=== PATIENT | female | born 1980 | race African-American/Black ===

== ENCOUNTER 2017-05-20 09:00 | Emergency (ER) | payer MEDICAID ==
[~2017-05-20] VITALS: Ht 162.6 cm; Wt 105.3 kg
[~2017-05-20 09:00] MED LIST: HYDR12.53 PO; LABE100T3 PO
[2017-05-20] MEDS ORDERED: CARV-39 PO (09:25)
[2017-05-20] MEDS ORDERED: DIAZEPAM 5 MG TABLET ONE (09:54)
[2017-05-20] MEDS ORDERED: KETOROLAC 30 MG/1 ML ONE (09:54)
[2017-05-20] MEDS ORDERED: HYDROcodone/APAP 5/325 TABLET ONE (09:54)
[2017-05-20] MEDS ORDERED: DIAZEPAM 5 MG TABLET PO ONE (10:00)
[2017-05-20] MEDS: HYDROcodone/APAP 5/325 TABLET PO ONE ×2 (10:00→10:47)
[2017-05-20] MEDS ORDERED: KETOROLAC 30 MG/1 ML IM ONE (10:00)
[2017-05-20 10:14] VITALS: BP 196/113
== END 2017-05-20 11:01 | disposition home or self-care (01) ==
LOC: ED 10:45
DX: S16.1XXA Strain of muscle, fascia and tendon at neck level, initial encounter (principal); I10 Essential (primary) hypertension; X58.XXXA Exposure to other specified factors, initial encounter; Y93.89 Activity, other specified; Y92.89 Other specified places as the place of occurrence of the external cause; Y99.8 Other external cause status
CPT/HCPCS: 72050; 96372; 99284; J1885

== ENCOUNTER 2017-06-18 11:52 | Emergency (ER) | payer MEDICAID ==
[~2017-06-18] VITALS: Ht 170.2 cm; Wt 108.0 kg
[~2017-06-18 11:52] MED LIST changes: +CARV-39 PO
[2017-06-18 12:09] VITALS: BP 185/119
== END 2017-06-18 13:13 | disposition home or self-care (01) ==
LOC: ED 12:40
DX: K02.9 Dental caries, unspecified (principal); I10 Essential (primary) hypertension; F17.210 Nicotine dependence, cigarettes, uncomplicated; Z88.0 Allergy status to penicillin; Z90.49 Acquired absence of other specified parts of digestive tract
CPT/HCPCS: 99283

== ENCOUNTER 2017-07-02 15:44 | Inpatient (IN) | payer MEDICAID ==
[~2017-07-02] VITALS: Ht 162.6 cm; Wt 107.5 kg
[2017-07-02] MEDS ORDERED: SODIUM CHLORIDE FLUSH 10ML SYR IVF ONE (16:00)
[2017-07-02 16:28] LABS: HEMATOCRIT 36.3 % (34.6-47.8); HEMOGLOBIN 11.6 g/dL (11.7-16.4); WHITE BLOOD COUNT 10.8 x10^3/uL (3.4-10)
[2017-07-02] MEDS ORDERED: KETOROLAC 30 MG/1 ML IVPush ONE (16:30)
[2017-07-02 16:40] LABS: BLOOD UREA NITROGEN 15 mg/dL (7-18)
[2017-07-02] MEDS ORDERED: KETOROLAC 30 MG/1 ML ONE (16:50)
[2017-07-02 16:51] LABS: IS PT STATUS REG ER OR PRE ER? YES
[2017-07-02] MEDS ORDERED: LABETALOL 5MG/ML, 20ML IVPush STA (16:54)
[2017-07-02] MEDS ORDERED: ASPIRIN 81 MG TABLET CHEW PO ONE (17:00)
[2017-07-02] MEDS ORDERED: ASPIRIN 81 MG TABLET CHEW ONE (17:10)
[2017-07-02] MEDS ORDERED: SODIUM CHLORIDE 0.9% 1,000 ML IV ONE (17:19)
[2017-07-02] MEDS ORDERED: ONDANSETRON 2MG/ML, 2ML IVPush PRN ×2 (17:30→18:00)
[2017-07-02] MEDS ORDERED: MORPHINE SULFATE 4 MG/ML, 1ML IVPush PRN (17:30)
[2017-07-02] MEDS ORDERED: NITROGLYCERIN 0.4 MG/SPRAY SL PRN (18:00)
[2017-07-02] MEDS ORDERED: ACETAMINOPHEN 325 MG TABLET PO PRN (18:00)
[2017-07-02] MEDS ORDERED: ENOXAPARIN 40 MG/0.4 ML SQ SCH (18:00)
[2017-07-02] MEDS ORDERED: ONDANSETRON ODT 4 MG PO PRN (18:00)
[2017-07-02] MEDS ORDERED: LORazepam 1MG TABLET PO PRN (18:00)
[2017-07-02] MEDS ORDERED: hydrALAzine 20 MG/ML, 1ML IVPush PRN (18:00)
[2017-07-02] MEDS ORDERED: NITROGLYCERIN 0.4 MG BOTTLE (25 TABS) SL PRN (18:00)
[2017-07-02] MEDS ORDERED: morphine SULFATE 10 MG/ML, 1ML IVPush PRN (18:00)
[2017-07-02] MEDS ORDERED: NICOTINE 21 MG/24 HR PATCH.TD24 TD ONE (18:30)
[2017-07-02] MEDS ORDERED: LABETALOL 5MG/ML, 20ML ONE (19:17)
[2017-07-02] MEDS ORDERED: LORazepam 1MG TABLET ONE (19:43)
[2017-07-02] MEDS ORDERED: CARVEDILOL 25 MG TABLET PO SCH (21:00)
[2017-07-02 21:51] VITALS: BP 180/108
[2017-07-02 23:34] LABS: IS PT STATUS REG ER OR PRE ER? NO
[2017-07-03] MEDS ORDERED: ENALAPRILAT 1.25 MG/ML, 2ML IV PRN (01:00)
[2017-07-03 03:15] VITALS: BP 143/84
[2017-07-03] MEDS ORDERED: ASPIRIN 325 MG TABLET EC PO SCH (06:00)
[2017-07-03 06:07] LABS: ASPARTATE AMINO TRANSFERASE 10 U/L (15-37); BLOOD UREA NITROGEN 13 mg/dL (7-18)
[2017-07-03 06:13] LABS: IS PT STATUS REG ER OR PRE ER? NO
[2017-07-03 06:23] LABS: HEMATOCRIT 37.2 % (34.6-47.8); HEMOGLOBIN 11.8 g/dL (11.7-16.4); WHITE BLOOD COUNT 8.8 x10^3/uL (3.4-10)
[2017-07-03 07:56] VITALS: BP 168/103
[2017-07-03] MEDS ORDERED: REGADENOSON 0.4 MG/5 ML SYRINGE ONE (08:06)
[2017-07-03] MEDS ORDERED: LISI-167 PO (08:10)
[2017-07-03] MEDS ORDERED: CARVEDILOL 25 MG TABLET PO SCH (09:00)
[2017-07-03] MEDS ORDERED: LISINOPRIL 10 MG TABLET PO SCH (09:00)
[2017-07-03 09:38] VITALS: BP_SYST 171; BP_SYST 174; BP_DIAS 112; BP_DIAS 113
[2017-07-03] MEDS ORDERED: AMLO10TA2 PO (10:50)
[2017-07-03] MEDS ORDERED: TRAM50TA2 PO (10:50)
[2017-07-03 14:13] LABS: DAU SCREEN DISCLAIMER
[2017-07-03 14:14] VITALS: BP 136/84
== END 2017-07-03 16:42 | disposition home or self-care (01) | DRG 880 ==
LOC: ED 16:56 → EDIP 17:19 → 5SO 19:26 → DCLOUNGE 07-03 16:22
PROVIDERS: ADMIT Family Medicine; ATTEND Family Medicine
DX: F41.9 Anxiety disorder, unspecified (principal); I11.0 Hypertensive heart disease with heart failure; I50.32 Chronic diastolic (congestive) heart failure; D50.9 Iron deficiency anemia, unspecified; D53.9 Nutritional anemia, unspecified; D72.829 Elevated white blood cell count, unspecified; F12.90 Cannabis use, unspecified, uncomplicated; F17.210 Nicotine dependence, cigarettes, uncomplicated; F32.9 Major depressive disorder, single episode, unspecified; R51 Headache; Z82.49 Family history of ischemic heart disease and other diseases of the circulatory system; Z83.3 Family history of diabetes mellitus; Z82.3 Family history of stroke; Z88.0 Allergy status to penicillin
CPT/HCPCS: 36415; 71010; 78452; 80048; 80053; 80061; 80307; 82040; 83036; 83880; 84443; 84484; 85025; 93005; 93017; 93306; 96374; 96375; J1885; J2785; A9502; C9898; G0479; J0360; J7030

== ENCOUNTER 2017-12-17 07:01 | Emergency (ER) | payer MEDICAID ==
[~2017-12-17] VITALS: Ht 160 cm; Wt 104.0 kg
[~2017-12-17 07:01] MED LIST changes: +AMLO10TA2 PO; +LISI-167 PO; +TRAM50TA2 PO
[2017-12-17] MEDS ORDERED: LISI5TAB7 PO (07:37)
[2017-12-17] MEDS ORDERED: FENTANYL PF 100 MCG/2ML IVPush PRN (08:00)
[2017-12-17] MEDS ORDERED: SODIUM CHLORIDE FLUSH 10ML SYR IVF ONE (08:00)
[2017-12-17] MEDS ORDERED: ONDANSETRON ODT 4 MG PO ONE (08:00)
[2017-12-17] MEDS ORDERED: FENTANYL PF 100 MCG/2ML ONE (08:05)
[2017-12-17] MEDS ORDERED: ONDANSETRON ODT 4 MG ONE (08:05)
[2017-12-17 08:10] LABS: MICROSCOPIC INDICATED
[2017-12-17 08:34] LABS: BASOPHILS # (AUTO) 0.01 x10^3/uL (0-0.1); BASOPHILS % (AUTO) 0 % (0-1); EOSINOPHILS # (AUTO) 0.06 x10^3/uL (0-0.4); EOSINOPHILS % (AUTO) 1 % (1-7); LYMPHOCYTES # (AUTO) 1.39 x10^3/uL (1-3.4); LYMPHOCYTES % (AUTO) 17 % (22-44); MD NO; MEAN CORPUSCULAR HEMOGLOBIN 23.8 pg (27.0-34.8); MEAN CORPUSCULAR VOLUME 74.4 fL (80-100); MEAN PLATELET VOLUME 8.1 fL (7.4-10.4); MONOCYTES % (AUTO) 6 % (2-9); NEUTROPHILS # (AUTO) 6.12 x10^3/uL (1.8-6.8); NEUTROPHILS % (AUTO) 76 % (42-75); PLATELET COUNT 343 x10^3/uL (130-400); RED BLOOD COUNT 5.17 x10^6/uL (3.82-5.3); RED CELL DISTRIBUTION WIDTH 17.6 % (9.6-15.2)
[2017-12-17 08:46] LABS: ALBUMIN 3.6 g/dL (3.4-5.0); ANION GAP 10 mmol/L (5-15); CALCIUM 8.4 mg/dL (8.5-10.1); CHLORIDE 106 mmol/L (98-107)
[2017-12-17 08:48] LABS: CULTURE INDICATED? NO
[2017-12-17 10:56] VITALS: BP 167/113
== END 2017-12-17 11:13 | disposition home or self-care (01) ==
LOC: ED 08:44
DX: S39.012A Strain of muscle, fascia and tendon of lower back, initial encounter (principal); K59.00 Constipation, unspecified; I10 Essential (primary) hypertension; X58.XXXA Exposure to other specified factors, initial encounter; Y93.89 Activity, other specified; Y92.89 Other specified places as the place of occurrence of the external cause; Y99.9 Unspecified external cause status
CPT/HCPCS: 36415; 74022; 74176; 80048; 81001; 82040; 84703; 85025; 93005; 96374; 99285; J3010; Q0162

== ENCOUNTER 2017-12-18 03:06 | Emergency (ER) | payer MEDICAID ==
[~2017-12-18] VITALS: Ht 162.6 cm; Wt 105.7 kg
[~2017-12-18 03:06] MED LIST changes: +LISI5TAB7 PO
[2017-12-18 03:07] VITALS: BP 155/111
[2017-12-18] MEDS ORDERED: METHYLNALTREXONE 12 MG/0.6 ML SQ ONE ×2 (03:39→04:00)
== END 2017-12-18 04:01 | disposition home or self-care (01) ==
LOC: ED 03:24
DX: K59.00 Constipation, unspecified (principal); I10 Essential (primary) hypertension; F17.200 Nicotine dependence, unspecified, uncomplicated
CPT/HCPCS: 96372; 99283

== ENCOUNTER 2018-07-24 15:28 | Emergency (ER) | payer SELFPAY ==
[~2018-07-24] VITALS: Ht 162.6 cm; Wt 105.5 kg
[~2018-07-24 15:28] MED LIST changes: -AMLO10TA2 PO; +AMLO10TA6 PO; -LABE100T3 PO; +LABE100T6 PO
[2018-07-24 15:52] VITALS: BP 159/105
== END 2018-07-24 16:15 | disposition home or self-care (01) ==
LOC: ED 15:50
DX: K02.9 Dental caries, unspecified (principal); I10 Essential (primary) hypertension; F17.200 Nicotine dependence, unspecified, uncomplicated; Z90.89 Acquired absence of other organs; Z88.0 Allergy status to penicillin
CPT/HCPCS: 99283

== ENCOUNTER 2018-10-24 09:54 | Emergency (ER) | payer MEDICAID ==
[~2018-10-24] VITALS: Ht 167.6 cm; Wt 104.4 kg
[~2018-10-24 09:54] MED LIST changes: -AMLO10TA6 PO; +AMLO10TA8 PO; +HYDR12.517 PO; -HYDR12.53 PO
[2018-10-24 10:26] VITALS: BP 158/107
[2018-10-24] MEDS ORDERED: KETOROLAC 30 MG/1 ML IM ONE (11:00)
[2018-10-24] MEDS ORDERED: KETOROLAC 30 MG/1 ML ONE (11:07)
== END 2018-10-24 11:27 | disposition home or self-care (01) ==
LOC: ED 10:41
DX: K04.7 Periapical abscess without sinus (principal); I10 Essential (primary) hypertension; Z88.0 Allergy status to penicillin; F17.210 Nicotine dependence, cigarettes, uncomplicated
CPT/HCPCS: 70486; 96372; 99284; J1885

== ENCOUNTER 2019-02-14 08:02 | Emergency (ER) | payer MEDICAID ==
[~2019-02-14] VITALS: Ht 162.6 cm; Wt 100.7 kg
[2019-02-14 08:07] VITALS: BP 163/108
[2019-02-14] MEDS ORDERED: KETOROLAC 60 MG/2 ML IM ONE (09:30)
[2019-02-14] MEDS ORDERED: CYCLOBENZAPRINE 10 MG TABLET PO ONE (09:30)
[2019-02-14] MEDS ORDERED: KETOROLAC 30 MG/1 ML ONE (09:31)
[2019-02-14] MEDS ORDERED: CYCLOBENZAPRINE 10 MG TABLET ONE (09:31)
--- NOTE | 2019-02-14 10:44 | NUR ---
PT NOT FOUND IN ROOM
== END 2019-02-14 10:59 ==
LOC: ED 10:01
DX: G44.209 Tension-type headache, unspecified, not intractable (principal); H00.016 Hordeolum externum left eye, unspecified eyelid; I11.9 Hypertensive heart disease without heart failure; I25.2 Old myocardial infarction
CPT/HCPCS: 96372; 99283; J1885

== ENCOUNTER 2019-08-14 08:26 | Emergency (ER) | payer SELFPAY ==
[~2019-08-14] VITALS: Ht 170.2 cm; Wt 100.3 kg
--- NOTE | 2019-08-14 08:50 | NUR ---
THIS IS A 38 YEAR OLD FEMALE WHO C/O OF CHEST PAIN, THAT STARTED AT 0300AM. PT STATES PAIN IS SHARP, WITH INSPIRATIONS. PT PLACED ON CORPORATE LEGAL ASSISTANT SINUS, CONTINOUS SP02 AT 98%, AND CYCLE VS. WARM BLANKET GIVEN, AWAITING MD FOR ORDERS
[2019-08-14] MEDS ORDERED: KETOROLAC 30 MG/1 ML IM ONE (09:00)
[2019-08-14] MEDS ORDERED: KETOROLAC 60 MG/2 ML ONE (09:04)
[2019-08-14 09:29] LABS: MEAN CORPUSCULAR HEMOGLOBIN 21.3 pg (27.0-34.8); MEAN CORPUSCULAR VOLUME 68.7 fL (80-100); MEAN PLATELET VOLUME 7.1 fL (7.4-10.4); PLATELET COUNT 343 x10^3/uL (130-400); RED BLOOD COUNT 4.88 x10^6/uL (3.82-5.3); RED CELL DISTRIBUTION WIDTH 19.1 % (9.6-15.2)
[2019-08-14 09:31] LABS: ALANINE AMINOTRANSFERASE 24 U/L (12-78); ALBUMIN 3.5 g/dL (3.4-5.0); ANION GAP 4 mmol/L (5-15); CALCIUM 8.7 mg/dL (8.5-10.1); CHLORIDE 110 mmol/L (98-107); CREATININE 1.15 mg/dL (0.55-1.02)
[2019-08-14 09:35] LABS: ALKALINE PHOSPHATASE 84 U/L (45-117); BILIRUBIN,TOTAL 0.3 mg/dL (0.2-1.0); TOTAL PROTEIN 7.6 g/dL (6.4-8.2); TROPONIN I 0.038 ng/mL (0.000-0.045)
[2019-08-14 09:48] LABS: BASOPHILS # (AUTO) 0.01 x10^3/uL (0-0.1); BASOPHILS % (AUTO) 0 % (0-1); EOSINOPHILS # (AUTO) 0.09 x10^3/uL (0-0.4); EOSINOPHILS % (AUTO) 1 % (1-7); LYMPHOCYTES # (AUTO) 1.62 x10^3/uL (1-3.4); LYMPHOCYTES % (AUTO) 20 % (22-44); MD MORPH REVIEW ONLY; MONOCYTES # (AUTO) 0.63 x10^3/uL (0.2-0.8); MONOCYTES % (AUTO) 8 % (2-9); NEUTROPHILS # (AUTO) 5.98 x10^3/uL (1.8-6.8); NEUTROPHILS % (AUTO) 72 % (42-75)
[2019-08-14 10:34] LABS: <PLATELET ESTIMATE> ADEQUATE; <PLT MORPHOLOGY> NORMAL PLT MORPH; ANISOCYTOSIS 2+; MICROCYTOSIS 2+
[2019-08-14 10:50] VITALS: BP 160/92
--- NOTE | 2019-08-14 10:50 | NUR ---
Patient/Caregiver given discharge instructions and they have confirmed that they understand the instructions. Patient ambulatory with steady gait.
== END 2019-08-14 10:52 | disposition home or self-care (01) ==
LOC: ED 08:56
DX: R07.89 Other chest pain (principal); R09.1 Pleurisy; F17.200 Nicotine dependence, unspecified, uncomplicated; I10 Essential (primary) hypertension
CPT/HCPCS: 36415; 71045; 80053; 84145; 84484; 85025; 93005; 96372; 99284; J1885

== ENCOUNTER 2019-10-21 05:45 | Emergency (ER) | payer MEDICAID, OTHER ==
[~2019-10-21] VITALS: Ht 162.6 cm; Wt 100.6 kg
--- NOTE | 2019-10-21 06:03 | NUR ---
Pt presents to ed c/o "irregular period... i have been having a period since the 23 of September." States intermittent bleeding since and going through a tampon every 30 minutes while bleeding. States "i have been having anxiety because of this and i have felt dizzy sometimes." Denies feeling dizzy at this time. Monitoring applied. Bp elevated. Hx of htn controlled w/ medications. Call light within reach. Awaiting md assessment.
--- NOTE | 2019-10-21 06:42 | NUR ---
Pt in us.
--- NOTE | 2019-10-21 06:45 | NUR ---
SBAR RPT REC'D AND PT CARE ASSUMED.
--- NOTE | 2019-10-21 06:50 | NUR ---
Pt report to Anne-Marie landa.
[2019-10-21 07:43] LABS: BASOPHILS # (AUTO) 0.03 x10^3/uL (0-0.1); BASOPHILS % (AUTO) 0 % (0-1); EOSINOPHILS # (AUTO) 0.09 x10^3/uL (0-0.4); EOSINOPHILS % (AUTO) 1 % (1-7); LYMPHOCYTES # (AUTO) 1.41 x10^3/uL (1-3.4); LYMPHOCYTES % (AUTO) 19 % (22-44); MD NO; MEAN CORPUSCULAR HEMOGLOBIN 21.5 pg (27.0-34.8); MEAN CORPUSCULAR HGB CONC 30.9 g/dL (32.4-35.8); MEAN CORPUSCULAR VOLUME 69.5 fL (80-100); MEAN PLATELET VOLUME 8.3 fL (7.4-10.4); MONOCYTES # (AUTO) 0.53 x10^3/uL (0.2-0.8); MONOCYTES % (AUTO) 7 % (2-9); NEUTROPHILS # (AUTO) 5.38 x10^3/uL (1.8-6.8); NEUTROPHILS % (AUTO) 72 % (42-75); PLATELET COUNT 368 x10^3/uL (130-400); RED BLOOD COUNT 4.72 x10^6/uL (3.82-5.3); RED CELL DISTRIBUTION WIDTH 19.9 % (9.6-15.2)
[2019-10-21 07:47] LABS: ALBUMIN 3.4 g/dL (3.4-5.0); ANION GAP 7 mmol/L (5-15); CALCIUM 8.4 mg/dL (8.5-10.1); CHLORIDE 109 mmol/L (98-107); CREATININE 0.96 mg/dL (0.55-1.02)
--- NOTE | 2019-10-21 08:01 | NUR ---
WARM BLANKET PROVIDED. PT VSS ALTHOUGH JBP IS ELEVATED. PT STATES SHE TOOK HER AMLODIPINE 10MG AT 0510 THIS MORNING. TEST RESULTED AND CHART UP FOR RECHECK
[2019-10-21 08:03] VITALS: BP 171/111
--- NOTE | 2019-10-21 08:41 | NUR ---
Patient/Caregiver given discharge instructions and they have confirmed that they understand the instructions. Patient ambulatory with steady gait.
== END 2019-10-21 08:42 | disposition home or self-care (01) ==
LOC: ED 07:33
DX: N92.4 Excessive bleeding in the premenopausal period (principal); I10 Essential (primary) hypertension; R42 Dizziness and giddiness; F17.210 Nicotine dependence, cigarettes, uncomplicated
CPT/HCPCS: 36415; 76830; 80048; 82040; 84703; 85025; 99284

== ENCOUNTER 2020-02-23 06:34 | Emergency (ER) | payer MEDICAID ==
[~2020-02-23] VITALS: Ht 162.6 cm; Wt 101.7 kg
--- NOTE | 2020-02-23 07:09 | NUR ---
PT STATES POSSIBLE TAMPON STUCK IN HER VAGINA X3 DAYS. ERMD AT BEDSIDE FOR ASSESSMENT. VOCATIONAL REHABILITATION SUPERVISOR CHART TO PT'S BEDSIDE. WILL ASSIST ERMD WITH PELVIC EXAM.
[2020-02-23 07:46] LABS: HCG UR SG 1.018 (1.003-1.030); MICROSCOPIC AUTO
--- NOTE | 2020-02-23 07:47 | NUR ---
PELVIC EXAM COMPLETED BY TED RN AT BEDSIDE FOR ASSIST. SAMPLE SENT TO LAB PER ORDERS. PT GIVEN WARM BLANKET FOR COMFORT.
[2020-02-23 08:03] LABS: MEAN CORPUSCULAR HEMOGLOBIN 20.4 pg (27.0-34.8); MEAN CORPUSCULAR HGB CONC 30.6 g/dL (32.4-35.8); MEAN CORPUSCULAR VOLUME 66.6 fL (80-100); MEAN PLATELET VOLUME 7.2 fL (7.4-10.4); PLATELET COUNT 391 x10^3/uL (130-400); RED BLOOD COUNT 4.41 x10^6/uL (3.82-5.3); RED CELL DISTRIBUTION WIDTH 18.8 % (9.6-15.2)
[2020-02-23 08:11] LABS: ALBUMIN 3.2 g/dL (3.4-5.0); ANION GAP 8 mmol/L (5-15); CALCIUM 8.7 mg/dL (8.5-10.1); CHLORIDE 110 mmol/L (98-107)
--- NOTE | 2020-02-23 08:12 | NUR ---
PT TO US.
[2020-02-23 08:15] LABS: ALANINE AMINOTRANSFERASE 14 U/L (12-78); ALKALINE PHOSPHATASE 66 U/L (45-117); BILIRUBIN,TOTAL 0.3 mg/dL (0.2-1.0); CREATININE 0.99 mg/dL (0.55-1.02); TOTAL PROTEIN 7.2 g/dL (6.4-8.2)
[2020-02-23] MEDS ORDERED: DEXTROSE 50%, 50ML SYRINGE ONE (08:35)
[2020-02-23 08:42] LABS: <PLATELET ESTIMATE> ADEQUATE; <PLT MORPHOLOGY> NORMAL PLT MORPH; BASOPHILS # (AUTO) 0.01 x10^3/uL (0-0.1); BASOPHILS % (AUTO) 0 % (0-1); EOSINOPHILS # (AUTO) 0.13 x10^3/uL (0-0.4); EOSINOPHILS % (AUTO) 2 % (1-7); LYMPHOCYTES # (AUTO) 1.41 x10^3/uL (1-3.4); LYMPHOCYTES % (AUTO) 17 % (22-44); MD MORPH REVIEW ONLY; MONOCYTES # (AUTO) 0.51 x10^3/uL (0.2-0.8); MONOCYTES % (AUTO) 6 % (2-9); NEUTROPHILS # (AUTO) 6.35 x10^3/uL (1.8-6.8); NEUTROPHILS % (AUTO) 76 % (42-75)
[2020-02-23 08:43] LABS: ANISOCYTOSIS 1+; HYPOCHROMIA 1+; MICROCYTOSIS 2+
[2020-02-23 08:44] LABS: ECHINOCYTES 1+
[2020-02-23 09:18] LABS: CLUE CELLS NONE SEEN (NONE SEEN)
[2020-02-23 09:19] LABS: WET PREP WBCS MODERATE (FEW)
--- NOTE | 2020-02-23 09:22 | NUR ---
PT RESTING IN BED, UP FOR ERMD RECHECK. WILL FOLLOW ORDERS.
--- NOTE | 2020-02-23 09:48 | NUR ---
REPORT GIVEN GIVEN JOSE ALFREDO ALEXANDER.
[2020-02-23 09:59] VITALS: BP 147/78
--- NOTE | 2020-02-23 09:59 | NUR ---
PT OK FOR D/C, VERBALIZED UNDERSTANDING OF D/C INSTRUCTIONS.
== END 2020-02-23 10:01 | disposition home or self-care (01) ==
LOC: ED 07:55
DX: A59.01 Trichomonal vulvovaginitis (principal); I10 Essential (primary) hypertension
CPT/HCPCS: 36415; 76830; 80053; 81001; 81025; 85025; 87210; 87491; 87591; 87808; 99284

== ENCOUNTER 2020-05-15 13:07 | Inpatient (IN) | payer MEDICAID ==
[~2020-05-15] VITALS: Ht 162.6 cm; Wt 102.8 kg
--- NOTE | 2020-05-15 14:22 | NUR ---
Report from Shira ALEXANDER, care assumed. Pt c/o RODRIGUEZ for 10 days. Pt states nausea and sensitivity to light as well. Lights in room off per pt request. [facility] Pt provided with warm blanket per request. Continuous oxygen and BP Monitors are in place, all safety measures observed.
[2020-05-15] MEDS ORDERED: SODIUM CHLORIDE FLUSH 10ML SYR IVF ONE (14:30)
[2020-05-15] MEDS ORDERED: HYDROmorphone 1 MG/ML, 1ML INJ IM ONE (14:30)
[2020-05-15] MEDS ORDERED: HYDROmorphone 1 MG/ML, 1ML INJ ONE (14:37)
--- NOTE | 2020-05-15 14:48 | NUR ---
Pt medicated per MAR for 06/25 RODRIGUEZ and HTN. Pt denies other needs.
--- NOTE | 2020-05-15 14:59 | NUR ---
Dr. Rowland at bedside to evaluate pt.
[2020-05-15] MEDS ORDERED: OMNIPAQUE 350 MG/ML, 75ML BOTTLE ONE (15:39)
--- NOTE | 2020-05-15 16:25 | NUR ---
Pt reports RODRIGUEZ resolved, requesting ice chips. PT reports mild nausea at this time as well.
--- NOTE | 2020-05-15 17:09 | NUR ---
Neurologist on tele robot to evaluate pt. Meal tray ordered for pt per request.
[2020-05-15 17:19] LABS: BASOPHILS # (AUTO) 0.01 x10^3/uL (0-0.1); BASOPHILS % (AUTO) 0 % (0-1); EOSINOPHILS # (AUTO) 0.06 x10^3/uL (0-0.4); EOSINOPHILS % (AUTO) 1 % (1-7); LYMPHOCYTES # (AUTO) 2.18 x10^3/uL (1-3.4); LYMPHOCYTES % (AUTO) 23 % (22-44); MD SCAN; MEAN CORPUSCULAR HEMOGLOBIN 19.2 pg (27.0-34.8); MEAN CORPUSCULAR HGB CONC 30.7 g/dL (32.4-35.8); MEAN CORPUSCULAR VOLUME 62.7 fL (80-100); MEAN PLATELET VOLUME 7.5 fL (7.4-10.4); MONOCYTES # (AUTO) 0.31 x10^3/uL (0.2-0.8); MONOCYTES % (AUTO) 3 % (2-9); NEUTROPHILS % (AUTO) 73 % (42-75); PLATELET COUNT 403 x10^3/uL (130-400); RED BLOOD COUNT 4.77 x10^6/uL (3.82-5.3); RED CELL DISTRIBUTION WIDTH 19.2 % (9.6-15.2)
[2020-05-15 17:20] LABS: INTERNATIONAL NORMALIZED RATIO 0.95 (0.93-1.1); PROTHROMBIN TIME 9.8 Seconds (9.6-11.5)
[2020-05-15 17:34] LABS: FREE T4 (FREE THYROXINE) 1.27 ng/dL (0.76-1.46)
[2020-05-15] MEDS ORDERED: GABAPENTIN 300 MG CAPSULE PO PRN (18:30)
[2020-05-15] MEDS ORDERED: LABETALOL 5MG/ML, 20ML IVPush PRN (18:30)
[2020-05-15] MEDS ORDERED: ONDANSETRON 2MG/ML, 2ML IVPush PRN (18:30)
[2020-05-15] MEDS ORDERED: ENOXAPARIN 40 MG/0.4 ML SQ SCH (18:30)
[2020-05-15] MEDS ORDERED: hydrALAzine 20 MG/ML, 1ML IVPush PRN (18:30)
[2020-05-15] MEDS ORDERED: BACLOFEN 10 MG TABLET PO PRN (18:30)
[2020-05-15] MEDS ORDERED: ACETAMINOPHEN 325 MG TABLET PO PRN (18:30)
[2020-05-15] MEDS ORDERED: ONDANSETRON ODT 4 MG PO PRN (18:30)
[2020-05-15] MEDS ORDERED: MELATONIN 5 MG TABLET PO PRN (18:30)
--- NOTE | 2020-05-15 18:39 | NUR ---
Report called to Araceli ALEXANDER in med tele. Floor ready for pt transport.
[2020-05-15] MEDS: BUTALB/APAP/CAFFEINE 50MG/325MG/40MG PO PRN (19:57)
[2020-05-15 20:04] VITALS: BP 174/93
[2020-05-15 21:48] VITALS: BP 147/81
[2020-05-15] MEDS ORDERED: OMNIPAQUE 350 MG/ML, 100ML BOTTLE ONE (23:08)
[2020-05-16 01:14] VITALS: BP 153/77
[2020-05-16] MEDS: BUTALB/APAP/CAFFEINE 50MG/325MG/40MG PO PRN ×2 (01:39→10:11)
[2020-05-16 05:57] LABS: BASOPHILS % (AUTO) 0 % (0-1); EOSINOPHILS # (AUTO) 0.16 x10^3/uL (0-0.4); EOSINOPHILS % (AUTO) 2 % (1-7); LYMPHOCYTES # (AUTO) 2.16 x10^3/uL (1-3.4); LYMPHOCYTES % (AUTO) 27 % (22-44); MD NO; MEAN CORPUSCULAR HEMOGLOBIN 18.9 pg (27.0-34.8); MEAN CORPUSCULAR HGB CONC 30.1 g/dL (32.4-35.8); MEAN CORPUSCULAR VOLUME 62.8 fL (80-100); MEAN PLATELET VOLUME 7.6 fL (7.4-10.4); MONOCYTES # (AUTO) 0.58 x10^3/uL (0.2-0.8); MONOCYTES % (AUTO) 7 % (2-9); NEUTROPHILS # (AUTO) 5.14 x10^3/uL (1.8-6.8); NEUTROPHILS % (AUTO) 64 % (42-75); PLATELET COUNT 381 x10^3/uL (130-400); RED CELL DISTRIBUTION WIDTH 19.2 % (9.6-15.2)
[2020-05-16 06:03] LABS: CHLORIDE 108 mmol/L (98-107)
[2020-05-16 06:16] LABS: ALANINE AMINOTRANSFERASE 16 U/L (12-78); ALBUMIN 3.2 g/dL (3.4-5.0); ALKALINE PHOSPHATASE 74 U/L (45-117); ANION GAP 5 mmol/L (5-15); BILIRUBIN,TOTAL 0.3 mg/dL (0.2-1.0); CALCIUM 8.8 mg/dL (8.5-10.1); CREATININE 0.93 mg/dL (0.55-1.02); TOTAL PROTEIN 7.2 g/dL (6.4-8.2)
[2020-05-16 08:09] VITALS: BP 148/92
[2020-05-16] MEDS ORDERED: LISINOPRIL 10 MG TABLET PO SCH (09:00)
[2020-05-16] MEDS ORDERED: AMLODIPINE 10 MG TAB PO SCH (09:00)
[2020-05-16] MEDS ORDERED: SENNA/DOCUSATE TABLET PO SCH (09:00)
[2020-05-16] MEDS ORDERED: CLOPIDOGREL 75 MG TABLET PO SCH (10:30)
[2020-05-16] MEDS ORDERED: ASPIRIN 81 MG TABLET EC PO SCH (10:30)
[2020-05-16] MEDS ORDERED: METOCLOPRAMIDE 5 MG/ML, 2ML IVPush ONE (10:30)
[2020-05-16] MEDS ORDERED: KETOROLAC 30 MG/1 ML IVPush ONE (10:30)
[2020-05-16] MEDS ORDERED: DIPHENHYDRAMINE 50 MG/ML, 1ML IVPush ONE (10:30)
[2020-05-16] MEDS ORDERED: DEXTROSE 5% IV ONE (11:00)
[2020-05-16] MEDS ORDERED: DIVALPROEX 500 MG TABLET.DR PO PRN (11:00)
[2020-05-16] MEDS ORDERED: MAGNESIUM SULFATE IV ONE (11:00)
[2020-05-16] MEDS ORDERED: IBUPROFEN 200 MG TABLET PO PRN (11:30)
[2020-05-16 15:09] VITALS: BP 113/75
[2020-05-16] MEDS ORDERED: DIPH25TA28 PO (16:29)
[2020-05-16] MEDS ORDERED: DIVA-61 PO (16:29)
[2020-05-16] MEDS ORDERED: ONDA4TAB7 PO (16:29)
[2020-05-16] MEDS ORDERED: IRON1TAB37 PO (17:03)
== END 2020-05-16 17:46 | disposition home or self-care (01) | DRG 103 ==
LOC: ED 15:07 → EDIP 17:11 → 4WST 19:08
PROVIDERS: ADMIT Internal Medicine; ATTEND Family Medicine
DX: G43.909 Migraine, unspecified, not intractable, without status migrainosus (principal); D50.9 Iron deficiency anemia, unspecified; E66.9 Obesity, unspecified; F12.90 Cannabis use, unspecified, uncomplicated; F17.210 Nicotine dependence, cigarettes, uncomplicated; I11.9 Hypertensive heart disease without heart failure; I25.2 Old myocardial infarction; Z82.3 Family history of stroke; Z86.73 Personal history of transient ischemic attack (TIA), and cerebral infarction without residual deficits; Z90.49 Acquired absence of other specified parts of digestive tract; F32.9 Major depressive disorder, single episode, unspecified; R79.89 Other specified abnormal findings of blood chemistry; Z68.38 Body mass index [BMI] 38.0-38.9, adult
CPT/HCPCS: 36415; 70450; 70481; 70496; 70498; 70551; 80053; 82728; 83540; 83550; 83735; 84439; 84443; 84481; 84703; 85025; 85610; 85730; 93005; 93306; G0378; J1170; J1650; J1885; J3475; Q9967; J1200; J2765

== ENCOUNTER 2020-05-17 13:09 | Emergency (ER) | payer MEDICAID ==
[~2020-05-17] VITALS: Ht 162.6 cm; Wt 102.1 kg
[~2020-05-17 13:09] MED LIST changes: +DIPH25TA28 PO; +DIVA-61 PO; +IRON1TAB37 PO; +ONDA4TAB7 PO
--- NOTE | 2020-05-17 13:33 | NUR ---
first contact with pt. pt c/o rose/bilateral ear pain/nausea x 10 days. pt's aox4. resps even and unlabored. bp/spo2 monitors in place. call light within reach.
[2020-05-17 13:34] VITALS: BP 157/91
[2020-05-17] MEDS ORDERED: KETOROLAC 30 MG/1 ML ONE (13:46)
[2020-05-17] MEDS ORDERED: METOCLOPRAMIDE 5 MG/ML, 2ML ONE (13:46)
[2020-05-17] MEDS ORDERED: METOCLOPRAMIDE 5 MG/ML, 2ML IVPush ONE (14:00)
[2020-05-17] MEDS ORDERED: KETOROLAC 30 MG/1 ML IVPush ONE (14:00)
[2020-05-17] MEDS ORDERED: SODIUM CHLORIDE FLUSH 10ML SYR IVF ONE (14:00)
--- NOTE | 2020-05-17 14:10 | NUR ---
this rn attempted piv x1 and no success. then pt was upset. jessica rn at bedside to start piv at this time.
--- NOTE | 2020-05-17 15:15 | NUR ---
THIS RN CHECKED PT IN ROOM, BUT PT WAS NOT IN ROOM.
--- NOTE | 2020-05-17 15:35 | NUR ---
THIS RN CALLED PT'S CELL PHONE AND ASKED ABOUT IV PLACEMENT. PT STATED "I TOOK IT OUT IN ROOM AT HOSPITAL." DIGITAL HARDWARE DESIGN ENGINEER NOTIFIED.
== END 2020-05-17 15:37 | disposition left against medical advice (07) ==
LOC: ED 14:26
DX: G43.701 Chronic migraine without aura, not intractable, with status migrainosus (principal); I10 Essential (primary) hypertension; I25.2 Old myocardial infarction; Z90.89 Acquired absence of other organs; Z86.73 Personal history of transient ischemic attack (TIA), and cerebral infarction without residual deficits
CPT/HCPCS: 96374; 96375; 99284; J1885; J2765

== ENCOUNTER 2021-01-12 11:24 | Emergency (ER) | payer MEDICAID ==
[~2021-01-12] VITALS: Ht 170.2 cm; Wt 101.0 kg
[~2021-01-12 11:24] MED LIST changes: +AMLO-211 PO; -AMLO10TA8 PO
[2021-01-12] MEDS ORDERED: MAALOX/HYOSCYAMINE/LIDOCAINE 45 ML BTL ONE (11:42)
[2021-01-12] MEDS ORDERED: MAALOX/HYOSCYAMINE/LIDOCAINE 45 ML BTL PO ONE (12:00)
[2021-01-12 12:03] LABS: BASOPHILS % (AUTO) 1 % (0-1); EOSINOPHILS % (AUTO) 1 % (1-7); LYMPHOCYTES % (AUTO) 31 % (22-44); MEAN CORPUSCULAR HEMOGLOBIN 19.1 pg (27.0-34.8); MEAN CORPUSCULAR HGB CONC 30.9 g/dL (32.4-35.8); MEAN PLATELET VOLUME 8.3 fL (7.4-10.4); MONOCYTES % (AUTO) 11 % (2-9); NEUTROPHILS % (AUTO) 56 % (42-75); PLATELET COUNT 341 x10^3/uL (130-400); RED BLOOD COUNT 5.44 x10^6/uL (3.82-5.3); RED CELL DISTRIBUTION WIDTH 21.1 % (9.6-15.2)
[2021-01-12 12:17] LABS: ALBUMIN 3.5 g/dL (3.4-5.0); ANION GAP 4 mmol/L (5-15); CALCIUM 8.7 mg/dL (8.5-10.1); CHLORIDE 107 mmol/L (98-107)
[2021-01-12 12:19] LABS: ALANINE AMINOTRANSFERASE 21 U/L (12-78); ALKALINE PHOSPHATASE 65 U/L (45-117); BILIRUBIN,TOTAL 0.6 mg/dL (0.2-1.0); CREATININE 0.77 mg/dL (0.55-1.02); TOTAL PROTEIN 7.6 g/dL (6.4-8.2)
[2021-01-12 12:23] LABS: MD MORPH REVIEW ONLY
[2021-01-12 12:24] LABS: <PLATELET ESTIMATE> ADEQUATE; ANISOCYTOSIS 2+; HYPOCHROMIA 1+; MICROCYTOSIS 2+; POLYCHROMASIA 1+; TEAR DROPS 1+
[2021-01-12 12:25] LABS: <PLT MORPHOLOGY> NORMAL PLT MORPH
[2021-01-12 12:45] VITALS: BP 140/92
[2021-01-12] MEDS ORDERED: ONDANSETRON 2MG/ML, 2ML IVPush ONE (13:00)
[2021-01-12] MEDS ORDERED: MORPHINE SULFATE 4 MG/ML, 1ML IVPush PRN (13:00)
[2021-01-12] MEDS ORDERED: SODIUM CHLORIDE FLUSH 10ML SYR IVF ONE (13:00)
[2021-01-12] MEDS ORDERED: ONDANSETRON 2MG/ML, 2ML ONE (13:07)
[2021-01-12] MEDS ORDERED: MORPHINE SULFATE 4 MG/ML, 1ML ONE (13:08)
--- NOTE | 2021-01-12 13:22 | NUR ---
STOMACH PAINS SINCE YESTERDAY, ACHING, DIFFUSE/R FLANK. DENIES N/V/D. PT IN BED WITH CONT SPO2 BP Q 30 MIN, SIDE RIALS UP X2, CALL LIGHT IN REACH. WENT OVER PLAN OF CARE FROM ORDER LIST, AGREES TO PLAN. 20G IV STARTED MEDS GIVEN PER EMAR. PAIN 04/25
--- NOTE | 2021-01-12 13:23 | NUR ---
PT TO CT
[2021-01-12] MEDS ORDERED: OMNIPAQUE 350 MG/ML, 100ML BOTTLE ONE (13:38)
--- NOTE | 2021-01-12 13:49 | NUR ---
PT BACK FROM CT
[2021-01-12] MEDS ORDERED: KETOROLAC 30 MG/1 ML ONE (15:16)
[2021-01-12] MEDS ORDERED: KETOROLAC 30 MG/1 ML IVPush ONE (15:30)
== END 2021-01-12 15:32 | disposition home or self-care (01) ==
LOC: ED 11:59
DX: K59.00 Constipation, unspecified (principal); I31.3 Pericardial effusion (noninflammatory); R10.10 Upper abdominal pain, unspecified; I25.2 Old myocardial infarction; I10 Essential (primary) hypertension; Z88.1 Allergy status to other antibiotic agents; F17.200 Nicotine dependence, unspecified, uncomplicated; Z90.89 Acquired absence of other organs; Z86.73 Personal history of transient ischemic attack (TIA), and cerebral infarction without residual deficits
CPT/HCPCS: 36415; 74021; 74177; 80053; 83690; 85025; 93306; 96374; 96375; 99285; J1885; J2270; J2405; Q9967

== ENCOUNTER 2021-01-13 02:40 | Emergency (ER) | payer MEDICAID ==
[~2021-01-13] VITALS: Ht 167.6 cm; Wt 101.0 kg
--- NOTE | 2021-01-13 02:52 | NUR ---
task rn: pt bib ems after being seen here yesterday for same complaint. cc of having abdominal pain radiates to right flank, pt reports this pain is similar to the pain that she had last time she had a bowel obstruction. denies bm x2days. pt has hx of bowel obstruction. pt placed on spo2/bp/ecg monitoring, bed in [facility], rails engaged, call light on lap. betty zacarias at bs for eval and poc. given 100mcg fentanyl enroute
--- NOTE | 2021-01-13 02:55 | NUR ---
report from uziel/kennedy peter
[2021-01-13] MEDS ORDERED: MORPHINE SULFATE 4 MG/ML, 1ML IVPush PRN (03:00)
[2021-01-13] MEDS ORDERED: ONDANSETRON 2MG/ML, 2ML IVPush ONE (03:00)
[2021-01-13] MEDS ORDERED: MORPHINE SULFATE 4 MG/ML, 1ML ONE (03:08)
[2021-01-13] MEDS ORDERED: ONDANSETRON 2MG/ML, 2ML ONE (03:08)
[2021-01-13 03:10] LABS: BASOPHILS % (AUTO) 1 % (0-1); EOSINOPHILS % (AUTO) 1 % (1-7); LYMPHOCYTES % (AUTO) 21 % (22-44); MEAN CORPUSCULAR HEMOGLOBIN 19.1 pg (27.0-34.8); MEAN CORPUSCULAR HGB CONC 30.9 g/dL (32.4-35.8); MEAN PLATELET VOLUME 8.3 fL (7.4-10.4); MONOCYTES % (AUTO) 11 % (2-9); NEUTROPHILS % (AUTO) 67 % (42-75); PLATELET COUNT 318 x10^3/uL (130-400)
[2021-01-13 03:16] LABS: MD NO
--- NOTE | 2021-01-13 03:19 | NUR ---
medicated per emar for abd pain at 7/10 cc ua sent to lab patient updated on estimated poc
[2021-01-13 03:27] LABS: ALANINE AMINOTRANSFERASE 21 U/L (12-78); ALBUMIN 3.7 g/dL (3.4-5.0); ANION GAP 5 mmol/L (5-15); CALCIUM 8.9 mg/dL (8.5-10.1); CHLORIDE 107 mmol/L (98-107); CREATININE 1.03 mg/dL (0.55-1.02)
[2021-01-13 03:32] LABS: ALKALINE PHOSPHATASE 60 U/L (45-117); BILIRUBIN,TOTAL 0.3 mg/dL (0.2-1.0); TOTAL PROTEIN 7.3 g/dL (6.4-8.2)
--- NOTE | 2021-01-13 03:41 | NUR ---
Pain improved to 2/10 updated on estimated poc
[2021-01-13 03:43] LABS: MICROSCOPIC AUTO
[2021-01-13 04:23] VITALS: BP 105/79
--- NOTE | 2021-01-13 04:25 | NUR ---
Reviewed testing. sxs to watch for. How to take prescribed meds Walked to steady gait to B2Brev
== END 2021-01-13 04:28 | disposition home or self-care (01) ==
LOC: ED 04:00
DX: K59.00 Constipation, unspecified (principal); R10.84 Generalized abdominal pain; I10 Essential (primary) hypertension; G43.909 Migraine, unspecified, not intractable, without status migrainosus
CPT/HCPCS: 36415; 80053; 81001; 83690; 84703; 85025; 87086; 96374; 96375; 99284; J2270; J2405

== ENCOUNTER 2021-03-06 08:19 | Emergency (ER) | payer MEDICAID ==
[~2021-03-06] VITALS: Ht 162.6 cm; Wt 103.7 kg
--- NOTE | 2021-03-06 08:41 | NUR ---
BRIGADIER: EKG PERFORMED IN TRIAGE
--- NOTE | 2021-03-06 09:00 | NUR ---
REPORT FROM BENJAMIN GIRON.
[2021-03-06 10:01] LABS: HCT (SEDRATE) 30.8 % (34.6-47.8)
[2021-03-06 10:02] LABS: BASOPHILS % (AUTO) 1 % (0-1); EOSINOPHILS % (AUTO) 1 % (1-7); LYMPHOCYTES % (AUTO) 21 % (22-44); MEAN CORPUSCULAR HEMOGLOBIN 19.2 pg (27.0-34.8); MEAN CORPUSCULAR HGB CONC 30.7 g/dL (32.4-35.8); MEAN PLATELET VOLUME 8.4 fL (7.4-10.4); MONOCYTES % (AUTO) 9 % (2-9); NEUTROPHILS % (AUTO) 68 % (42-75); PLATELET COUNT 388 x10^3/uL (130-400); RED BLOOD COUNT 5.01 x10^6/uL (3.82-5.3); RED CELL DISTRIBUTION WIDTH 21.5 % (9.6-15.2)
[2021-03-06 10:09] LABS: ALANINE AMINOTRANSFERASE 13 U/L (12-78); ALBUMIN 3.4 g/dL (3.4-5.0); ANION GAP 5 mmol/L (5-15); CALCIUM 8.8 mg/dL (8.5-10.1); CREATININE 0.88 mg/dL (0.55-1.02)
[2021-03-06 10:12] VITALS: BP 176/80
[2021-03-06 10:12] LABS: ALKALINE PHOSPHATASE 56 U/L (45-117); BILIRUBIN,TOTAL 0.4 mg/dL (0.2-1.0); TOTAL PROTEIN 7.2 g/dL (6.4-8.2)
[2021-03-06 10:15] LABS: CHLORIDE 112 mmol/L (98-107)
[2021-03-06 10:24] LABS: <PLATELET ESTIMATE> ADEQUATE; <PLT MORPHOLOGY> NORMAL PLT MORPH; ANISOCYTOSIS 2+; HYPOCHROMIA 1+; MICROCYTOSIS 2+; POLYCHROMASIA 1+
[2021-03-07 18:47] LABS: ANA SCREEN POSITIVE (Negative); ANTI-NUCLEAR ANTIBODY PATTERN NUCLEOLAR
== END 2021-03-06 11:08 | disposition home or self-care (01) ==
LOC: ED 08:46
DX: R20.2 Paresthesia of skin (principal); I10 Essential (primary) hypertension; I25.2 Old myocardial infarction; G43.909 Migraine, unspecified, not intractable, without status migrainosus; F17.200 Nicotine dependence, unspecified, uncomplicated; Z86.73 Personal history of transient ischemic attack (TIA), and cerebral infarction without residual deficits
CPT/HCPCS: 36415; 70450; 72125; 80053; 85025; 85651; 86038; 86039; 93005; 99285